=== PATIENT | female | born 1950 | race Caucasian/White ===

== ENCOUNTER 2016-11-14 08:48 | Emergency (ER) | payer OTHER ==
[2016-11-14] MEDS ORDERED: BENZONATATE 100 MG CAPSULE PO STA (10:27)
[2016-11-14] MEDS ORDERED: guaiFENesin/DEXTROMETHORPHAN 10 ML UDC PO PRN (10:27)
[2016-11-14] MEDS ORDERED: BENZONATATE 100 MG CAPSULE PO ONE (10:44)
[2016-11-14] MEDS ORDERED: guaiFENesin/DEXTROMETHORPHAN 10 ML UDC ONE (10:44)
[2016-11-14] MEDS ORDERED: OSELTAMIVIR 75 MG CAPSULE PO STA (10:48)
[2016-11-14] MEDS ORDERED: levoFLOXacin 250 MG TABLET PO STA (10:48)
[2016-11-14] MEDS ORDERED: OSELTAMIVIR 75 MG CAPSULE PO ONE (10:56)
[2016-11-14] MEDS ORDERED: levoFLOXacin 250 MG TABLET PO ONE (10:56)
== END 2016-11-14 11:04 | disposition home or self-care (01) ==
DX: J11.00 Influenza due to unidentified influenza virus with unspecified type of pneumonia (principal); Z88.0 Allergy status to penicillin; I10 Essential (primary) hypertension; E03.9 Hypothyroidism, unspecified
CPT/HCPCS: 71020; 99283; 99284; A9270